=== PATIENT | female | born 1960 | race Caucasian/White ===

== ENCOUNTER → 2018-01-08 | Outpatient (CLI) | payer BC ==
--- NOTE | 2018-01-08 11:01 | XR ---
EXAMINATION TYPE: XR cervical spine comp DATE OF EXAM: 01/08/2018 COMPARISON: NONE HISTORY: Neck pain TECHNIQUE: Five-view cervical spine FINDINGS: Severe foraminal narrowing is present C5-6 C6-7 on the left and severe foraminal narrowing C6-7 on the right. There is degenerative disc changes C5-6 C6-7. The prevertebral space is normal. Some posterior endpla te spurring is present C6-7. Posterior spinal lamellar line is intact. Tip of the odontoid is obscure d by occiput. IMPRESSION: 1. Severe foraminal narrowing C5-6 C6-7 on the left C6-7 on the right. 2. Degenerative disc changes C5-6 and C6-7
--- NOTE | 2018-01-08 11:02 | XR ---
EXAMINATION TYPE: XR Hip Bilateral Complete DATE OF EXAM: 01/08/2018 COMPARISON: NONE HISTORY: Bilateral hip pain TECHNIQUE: Bilateral hips are examined in AP and frog-leg views. FINDINGS: There is narrowing of the bilateral hip joint spaces. The femoral heads articulate with the acetabulu m. Some mild femoral head spurring is present on the right. No acute fractures are evident. IMPRESSION: 1. Mild osteoarthritic degenerative changes bilateral hips
--- NOTE | 2018-01-08 11:07 | XR ---
EXAMINATION TYPE: XR lumbosacral spine min 4V DATE OF EXAM: 01/08/2018 COMPARISON: NONE HISTORY: Low back pain with no known injury TECHNIQUE: Five-view lumbar spine FINDINGS: There 5 lumbar-type vertebral bodies. The pedicles are intact. There is a scoliosis present with convexity to the right. Facet degenerative changes present L3-4 L4-5 L5-S1. Some vacuum disc ph enomenon is present L5-S1. There is a grade 1 spondylolisthesis of L4 anterior and L5. Some posterior disc space narrowing is present L3-4 and L1-2. Note is made of endplate changes at T11-12. IMPRESSION: 1. Scoliosis with degenerative facet changes. 2. Mild degenerative disc changes. 3. Mild grade 1 spondylolisthesis of L4 anterior and L5.
== END | disposition home or self-care (01) ==
LOC: RADXRMAIN 09:59
PROVIDERS: ATTEND Family Medicine
DX: M99.71 Connective tissue and disc stenosis of intervertebral foramina of cervical region (principal); M47.812 Spondylosis without myelopathy or radiculopathy, cervical region; M16.0 Bilateral primary osteoarthritis of hip; M47.816 Spondylosis without myelopathy or radiculopathy, lumbar region; M43.16 Spondylolisthesis, lumbar region; M41.9 Scoliosis, unspecified
CPT/HCPCS: 72050; 72110; 73521

== ENCOUNTER 2018-02-08 11:31 | Emergency (ER) | payer BC ==
[2018-02-08 11:58] VITALS: TEMP 98.4
[2018-02-08] MEDS ORDERED: ONDANSETRON 4 MG/2 ML VIAL IVP STA (12:27)
[2018-02-08] MEDS ORDERED: SODIUM CHLORIDE 0.9% 1,000 ML IV STA ×2 (12:27→14:06)
[2018-02-08 12:47] LABS: Basophils % (A) 0 %; Eosinophils # (A) 0.2 k/uL (0-0.7); Eosinophils % (A) 2 %; HCT 46.7 % (34.0-46.0); HGB 15.7 gm/dL (11.4-16.0); Lymphocytes # (A) 1.8 k/uL (1.0-4.8); Lymphocytes % (A) 16 %; MCH 29.7 pg (25.0-35.0); MCHC 33.7 g/dL (31.0-37.0); MCV 88.1 fL (80.0-100.0); Mean Platelet Volume 6.5; Monocytes # (A) 0.5 k/uL (0-1.0); Monocytes % (A) 4 %; Neutrophils # (A) 8.6 k/uL (1.3-7.7); Neutrophils % (A) 77 %; Platelet Count 301 k/uL (150-450); RBC 5.29 m/uL (3.80-5.40); WBC 11.1 k/uL (3.8-10.6)
[2018-02-08 12:54] LABS: Appearance,Urine Cloudy (Clear); Bacteria,Urine Rare /hpf; Bilirubin,Urine Negative (Negative); Blood,Urine Large (Negative); Color,Urine Light Orange; Glucose,Urine (UA) Negative (Negative); Ketones,Urine 2+ (Negative); Leukocyte Esterase,Urine Moderate (Negative); Mucus,Urine Moderate /hpf; Nitrite,Urine Negative (Negative); PH, Urine 8.5 (5.0-8.0); Protein,Urine 2+ (Negative); RBC,Urine >182 /hpf (0-5); Squamous Epithelial Cell,Urine 9 /hpf (0-4); Urobilinogen,Urine <2.0 mg/dL (<2.0); WBC,Urine 17 /hpf (0-5)
[2018-02-08 12:57] LABS: ALT 38 U/L (9-52); AST 26 U/L (14-36); Albumin 4.7 g/dL (3.5-5.0); Alkaline Phosphatase 75 U/L (38-126); Amylase 81 U/L (30-110); Anion Gap 13 mmol/L; Blood Urea Nitrogen 15 mg/dL (7-17); Calcium 9.6 mg/dL (8.4-10.2); Carbon Dioxide 19 mmol/L (22-30); Chloride 109 mmol/L (98-107); Glucose 109 mg/dL (74-99); Lipase 79 U/L (23-300); Potassium 4.1 mmol/L (3.5-5.1); Sodium 141 mmol/L (137-145); Total Bilirubin 0.9 mg/dL (0.2-1.3)
[2018-02-08] MEDS ORDERED: METOCLOPRAMIDE 5 MG/ML 2 ML VIAL IVP STA (13:08)
[2018-02-08] MEDS ORDERED: MORPHINE SULFATE 2 MG/ML SYRINGE IVP STA (13:09)
--- NOTE | 2018-02-08 13:38 | XR ---
EXAMINATION TYPE: XR KUB DATE OF EXAM: 02/08/2018 1:34 PM CLINICAL HISTORY: Nausea and vomiting today. TECHNIQUE: 3 supine KUB images of the abdomen are obtained. COMPARISON: None. FINDINGS: Gas is seen in nondistended stomach. There is some paucity of bowel gas. Visualized gas is noted in nondistended small and large bowel loops. Cholecystectomy clips are appreciated. There is de xtroconvex scoliosis centered in the mid lumbar spine. Multiple pelvic phleboliths are present. Visua lized lung bases are clear. Mild to moderate joint space loss in both hips is present. There is disc space narrowing L4-L5 level. IMPRESSION: Overall nonspecific but favor nonobstructive bowel gas pattern.
--- NOTE | 2018-02-08 13:41 | XR ---
EXAMINATION TYPE: XR lumbar spine 2 or 3V DATE OF EXAM: 02/08/2018 CLINICAL HISTORY: Low back pain TECHNIQUE: Frontal and lateral images of the lumbar spine are obtained. COMPARISON: Lumbar spine x-ray January 08, 2018 FINDINGS: There are 5 lumbar type vertebral bodies identified. The lumbar spine redemonstrates dext roconvex scoliosis centered at L3 level without evidence of acute fracture or dislocation. There is r edemonstration of grade 1 anterolisthesis of L4 on L5. Vertebral body heights remain are within cresencio l limits. There is mild disc space narrowing L4-L5 level redemonstrated. There is moderate disc spac e narrowing L5-S1 level redemonstrated. Facet arthropathy lower lumbar levels is present. Vascular ca lcification overlying abdominal aorta is seen. Cholecystectomy clips are noted. Suspect 2-3 calculi u pper to mid pole level left kidney noted near left 12th rib not significantly changed from prior.. IMPRESSION: As above, no significant change from prior study.
[2018-02-08] MEDS ORDERED: KETOROLAC 30 MG/ML 1 ML VIAL IVP STA (14:05)
--- NOTE | 2018-02-08 14:09 | CT ---
EXAMINATION TYPE: CT abdomen pelvis wo con DATE OF EXAM: 02/08/2018 HISTORY: pelvic pain with hematuria today. CT DLP: 438.5 mGycm. Automated Exposure Control for Dose Reduction was Utilized. TECHNIQUE: CT scan of the abdomen and pelvis is performed without oral or IV contrast. COMPARISON: NONE FINDINGS: Within the limitations of a non-contrast study, the following observations are made. LUNG BASES: No significant abnormality is appreciated. LIVER/GB: Cholecystectomy clips are identified. PANCREAS: No significant abnormality is seen. SPLEEN: No significant abnormality is seen. ADRENALS: Slightly low dense thickening to left adrenal gland favors hyperplasia. KIDNEYS: There are 1-2 calculi scattered throughout the right kidney including dominant 3 mm calculus upper pole level coronal image 60. There are 2 adjacent 4 to 5 mm calculi within upper pole calyx co sia image 57. There is obstructing 5 mm calculus distal left ureter axial image 129 causing mild to moderate left-sided pyelocaliectasis and proximal hydroureter. [place] bladder is poorly distended an d thus suboptimally evaluated seen best on coronal images. Multiple adjacent pelvic phleboliths are p resent. BOWEL: Small size hiatal hernia is present. GENITAL ORGANS: Anteverted uterus is seen. In the left pelvis there is 5.9 x 4.5 cm thin-walled cyst or cystic lesion that has some calcification in the thin-walled, there is slight lobulation and calci fication also seen anteriorly. Local mass effect is present. LYMPH NODES: No greater than 1cm abdominal or pelvic lymph nodes are appreciated. OSSEOUS STRUCTURES: Slight underlying scoliotic curvature is seen. There is multilevel spurring and d isc space narrowing in the mid to lower thoracic spine. Multilevel facet arthropathy lower lumbar lev els is present most prominent L4-L5 level. OTHER: There is mild to moderate calcified plaque of aorta extending into branch vessels. IMPRESSION: 1. Bilateral nephrolithiasis with obstructing 5 mm calculus distal left ureter causing mild to modera te left-sided hydronephrosis. 2. There is 5.9 cm partially calcified thin-walled cystic lesion left pelvis likely of ovarian etiolo gy, this is abnormal finding in postmenopausal female. OB gynecology oncology follow-up advised to as sess for further workup.
--- NOTE | 2018-02-08 14:35 | ED ---
General Adult HPI - General Chief complaint: Nausea/Vomiting/Diarrhea Stated complaint: VOMITING AND CHEST PAIN Time Seen by Provider: 02/08/18 12:15 Source: patient, RN notes reviewed Mode of arrival: wheelchair Limitations: no limitations - History of Present Illness Initial comments: 57-year-old female presents to the emergency department for a chief complaint of nausea and vomiting. Patient states this is likely due to pain in her low back and abdomen. Patient states pain is radiating from the low back to the abdomen. Patient states this started this morning. Patient has not taken anything for pain but did take Zofran which did not help. Patient denies any fevers or chills at home. Patient denies any diarrhea. Patient states her family members have had kidney stones but she has not had one before. Patient has no other complaints at this time including shortness of breath, chest pain, abdominal pain, nausea or vomiting, headache, or visual changes. - Related Data Previous Rx's Medication Instructions Recorded Cephalexin [Keflex] 500 mg PO Q8H 10 Days cap 02/08/18 HYDROcodone/APAP 5-325MG [[facility] 1 tab PO Q6HR PRN #10 tab 02/08/18 5-325] Ibuprofen [Motrin] 600 mg PO Q6HR PRN #20 tab 02/08/18 Ondansetron HCl [Zofran] 4 mg PO Q8HR PRN #14 tablet 02/08/18 Tamsulosin [Flomax] 0.4 mg PO DAILY #20 cap 02/08/18 Allergies Allergy/AdvReac Type Severity Reaction Status Date / Time Sulfa (Sulfonamide Allergy Unknown Verified 02/08/18 12:17 Antibiotics) Review of Systems ROS Statement: Those systems with pertinent positive or pertinent negative responses have been documented in the HPI. ROS Other: All systems not noted in ROS Statement are negative. Past Medical History Additional Past Medical History / Comment(s): dizziness vertigo History of Any Multi-Drug Resistant Organisms: None Reported Past Surgical History: Cholecystectomy, Orthopedic Surgery Past Psychological History: No Psychological Hx Reported Smoking Status: Current every day smoker Past Alcohol Use History: Occasional Past Drug Use History: Marijuana General Exam Limitations: no limitations General appearance: alert, in no apparent distress Head exam: Present: atraumatic, normocephalic, normal inspection Eye exam: Present: normal appearance ENT exam: Present: normal exam, mucous membranes moist Neck exam: Present: normal inspection, full ROM. Absent: tenderness, meningismus, lymphadenopathy Respiratory exam: Present: normal lung sounds bilaterally. Absent: respiratory distress, wheezes, rales, rhonchi, stridor Cardiovascular Exam: Present: regular rate, normal rhythm, normal heart sounds. Absent: systolic murmur, diastolic murmur, rubs, gallop, clicks GI/Abdominal exam: Present: soft, tenderness (mild LLQ tenderness), normal bowel sounds. Absent: distended, guarding, rebound, rigid Back exam: Present: full ROM (flexion 90 degrees, extension 20 degrees). Absent : tenderness (no tenderness of the cervical, thoracic or lumbar spine.), CVA tenderness (R), CVA tenderness (L), vertebral tenderness Neurological exam: Present: alert, oriented X3 Psychiatric exam: Present: normal affect, normal mood Course Vital Signs 02/08/18 02/08/18 11:54 14:18 Temperature 98.4 F Pulse Rate 78 86 Respiratory 18 18 Rate Blood Pressure 151/87 147/89 O2 Sat by Pulse 100 93 L Oximetry Medical Decision Making - Medical Decision Making 57-year-old female presents to the emergency department for a chief complaint of nausea and vomiting due to low back pain on the left side times one day. Patient has vomited about 10- 20 times today. Patient did take Zofran which did not help. Patient states family history of kidney stones which she has not had one. Patient denies any fevers or chills at home. Patient is walking around the room and does not want to lie down. Patient states the pain is radiating to her abdomen and groin. On exam no CVA tenderness. Mild left lower quadrant tenderness. Vitals within normal limits. Temp 98.4, pulse 78, respirations 18, blood pressure 151/87, pulse ox 100% on room air. CBC unremarkable with a very mild white count of 11.1. CMP within normal limits. Plasma lactic acid 2.5 which is very likely due to dehydration from multiple episodes of vomiting. Patient given another liter of saline. Patient does not meet septic criteria. Large blood noted in the urine. CT shows bilateral nephrolithiasis with obstructing 5 mm calculus distal left ureter causing mild to moderate left-sided hydronephrosis. There is also a 5.9 cm partially calcified thin-walled cystic lesion left pelvis likely of ovarian etiology. patient will follow up with [facility]PER[facility] for this. She was informed about this and is aware she needs to follow-up. Patient will follow-up with urology for the kidney stone. She will be given pain medication as well as Flomax and Zofran. She will also be given Keflex to cover poss UTI. She will return to the emergency Department if she has any worsening symptoms. - Lab Data Result diagrams: 02/08/18 12:30 02/08/18 12:30 Lab Results 02/08/18 02/08/18 02/08/18 Range/Units 12:30 12:30 12:30 WBC 11.1 H (3.8-10.6) k/uL RBC 5.29 (3.80-5.40) m/uL Hgb 15.7 (11.4-16.0) gm/dL Hct 46.7 H (34.0-46.0) % MCV 88.1 (80.0-100.0) fL MCH 29.7 (25.0-35.0) pg MCHC 33.7 (31.0-37.0) g/dL RDW 14.0 (11.5-15.5) % Plt Count 301 (150-450) k/uL Neutrophils % 77 % Lymphocytes % 16 % Monocytes % 4 % Eosinophils % 2 % Basophils % 0 % Neutrophils # 8.6 H (1.3-7.7) k/uL Lymphocytes # 1.8 (1.0-4.8) k/uL Monocytes # 0.5 (0-1.0) k/uL Eosinophils # 0.2 (0-0.7) k/uL Basophils # 0.0 (0-0.2) k/uL Sodium 141 (137-145) mmol/L Potassium 4.1 (3.5-5.1) mmol/L Chloride 109 H (98-107) mmol/L Carbon Dioxide 19 L (22-30) mmol/L Anion Gap 13 mmol/L BUN 15 (7-17) mg/dL Creatinine 0.70 (0.52-1.04) mg/dL Est GFR (CKD-EPI)AfAm >90 (>60 ml/min/1.73 sqM) Est GFR (CKD-EPI)NonAf >90 (>60 ml/min/1.73 sqM) Glucose 109 H (74-99) mg/dL Plasma Lactic Acid Tomasz (0.7-2.0) mmol/L Calcium 9.6 (8.4-10.2) mg/dL Total Bilirubin 0.9 (0.2-1.3) mg/dL AST 26 (14-36) U/L ALT 38 (9-52) U/L Alkaline Phosphatase 75 (38-126) U/L Total Protein 7.0 (6.3-8.2) g/dL Albumin 4.7 (3.5-5.0) g/dL Amylase 81 (30-110) U/L Lipase 79 (23-300) U/L Urine Color Light [place] Urine Appearance Cloudy H (Clear) Urine pH 8.5 H (5.0-8.0) Ur Specific [place] 1.020 (1.001-1.035) Urine Protein 2+ H (Negative) Urine Glucose (UA) Negative (Negative) Urine Ketones 2+ H (Negative) Urine Blood Large H (Negative) Urine Nitrite Negative (Negative) Urine Bilirubin Negative (Negative) Urine Urobilinogen <2.0 (<2.0) mg/dL Ur Leukocyte Esterase Moderate H (Negative) Urine RBC >182 H (0-5) /hpf Urine WBC 17 H (0-5) /hpf Urine WBC Clumps Occasional H (None) /hpf Ur Squamous Epith Cells 9 H (0-4) /hpf Urine Bacteria Rare H (None) /hpf Urine Mucus Moderate H (None) /hpf Urine HCG, Qual (Not Detectd) 02/08/18 02/08/18 Range/Units 12:30 12:40 WBC (3.8-10.6) k/uL RBC (3.80-5.40) m/uL Hgb (11.4-16.0) gm/dL Hct (34.0-46.0) % MCV (80.0-100.0) fL MCH (25.0-35.0) pg MCHC (31.0-37.0) g/dL RDW (11.5-15.5) % Plt Count (150-450) k/uL Neutrophils % % Lymphocytes % % Monocytes % % Eosinophils % % Basophils % % Neutrophils # (1.3-7.7) k/uL Lymphocytes # (1.0-4.8) k/uL Monocytes # (0-1.0) k/uL Eosinophils # (0-0.7) k/uL Basophils # (0-0.2) k/uL Sodium (137-145) mmol/L Potassium (3.5-5.1) mmol/L Chloride (98-107) mmol/L Carbon Dioxide (22-30) mmol/L Anion Gap mmol/L BUN (7-17) mg/dL Creatinine (0.52-1.04) mg/dL Est GFR (CKD-EPI)AfAm (>60 ml/min/1.73 sqM) Est GFR (CKD-EPI)NonAf (>60 ml/min/1.73 sqM) Glucose (74-99) mg/dL Plasma Lactic Acid Tomasz 2.5 H* (0.7-2.0) mmol/L Calcium (8.4-10.2) mg/dL Total Bilirubin (0.2-1.3) mg/dL AST (14-36) U/L ALT (9-52) U/L Alkaline Phosphatase (38-126) U/L Total Protein (6.3-8.2) g/dL Albumin (3.5-5.0) g/dL Amylase (30-110) U/L Lipase (23-300) U/L Urine Color Urine Appearance (Clear) Urine pH (5.0-8.0) Ur Specific [place] (1.001-1.035) Urine Protein (Negative) Urine Glucose (UA) (Negative) Urine Ketones (Negative) Urine Blood (Negative) Urine Nitrite (Negative) Urine Bilirubin (Negative) Urine Urobilinogen (<2.0) mg/dL Ur Leukocyte Esterase (Negative) Urine RBC (0-5) /hpf Urine WBC (0-5) /hpf Urine WBC Clumps (None) /hpf Ur Squamous Epith Cells (0-4) /hpf Urine Bacteria (None) /hpf Urine Mucus (None) /hpf Urine HCG, Qual Not Detected (Not Detectd) Disposition Clinical Impression: Left nephrolithiasis Disposition: HOME SELF-CARE Condition: Good Instructions: Kidney Stones (ED) Additional Instructions: Please take Motrin for pain. If pain is severe take [facility]. Please take Flomax as directed. Take Zofran for nausea. Finish antibiotic as directed. Follow- up with family doctor or [facility] for ovarian cyst. Follow-up with urology in 1- 2 days. Return to the emergency department if you have any worsening symptoms. Prescriptions: Cephalexin [Keflex] 500 mg PO Q8H 10 Days cap HYDROcodone/APAP 5-325MG [[facility] 5-325] 1 tab PO Q6HR PRN #10 tab PRN Reason: Pain Ibuprofen [Motrin] 600 mg PO Q6HR PRN #20 tab PRN Reason: Pain Ondansetron HCl [Zofran] 4 mg PO Q8HR PRN #14 tablet PRN Reason: Nausea Tamsulosin [Flomax] 0.4 mg PO DAILY #20 cap Is patient prescribed a controlled substance at d/c from ED?: Yes When asked, does pt state using other controlled substances?: No If prescribed controlled substance>3 days was MAPS reviewed?: Prescribed <3 Days If opioid is for acute pain is fill amount 7 days or less?: Yes If Rx opioid, was Start Talking consent form obtained?: Yes Referrals: Devin Guaraddo DO [Primary Care Provider] - 1-2 days Shaylee Wilkes MD [STAFF PHYSICIAN] - 1-2 days John Amador MD [STAFF PHYSICIAN] - 1-2 days Time of Disposition: 14:32
[2018-02-08 15:16] VITALS: BP 157/83; PULSE 87; RESP 16
== END 2018-02-08 15:16 | disposition home or self-care (01) ==
LOC: EC 11:31
DX: N13.2 Hydronephrosis with renal and ureteral calculous obstruction (principal); F17.200 Nicotine dependence, unspecified, uncomplicated; Z90.49 Acquired absence of other specified parts of digestive tract; Z98.890 Other specified postprocedural states; Z88.2 Allergy status to sulfonamides
CPT/HCPCS: 36415; 80053; 82150; 83605; 83690; 85025; 81001; 81025; 87040; 72100; 74018; 74176; 99284; 96374; 96375 ×3; 96361 ×2; J2765; J2405; J1885; J2270

== ENCOUNTER → 2020-10-08 | Outpatient (CLI) | payer BC ==
--- NOTE | 2020-10-08 13:09 | CT ---
EXAMINATION TYPE: CT chest w con, CT abdomen pelvis wo con DATE OF EXAM: 10/08/2020 COMPARISON: 04/05/2018 HISTORY: 60 year-old female shortness of breath, Dyspnea. Generalized abdominal pain. TECHNIQUE: Contiguous axial scanning of the chest after the administration of 100 mL of Isovue M300. Coronal/sagittal reconstructions performed. Initial noncontrast scanning of the abdomen and pelvis. Coronal and sagittal reconstructions performed. CT DLP: 544.74 (accession [id number]), 884.52 (accession [id number])mGycm. Automatic exposure control uti lized for a dose reduction. FINDINGS: CHEST: Suggestion of underlying nodules measuring up to 1.0 cm and the thyroid gland. Dedicated thyroid ultr asound could further evaluate. Heart normal size with trace anterior pericardial fluid measuring 7 mm thick. Aorta normal caliber with a minimal atherosclerotic arch calcifications and conventional arch vessel branching anatomy. No thoracic lymphadenopathy by CT size criteria. Mild emphysematous change in the upper lungs. Some minimal strandy scarring or atelectasis. 4 mm anterior left midlung pulmonary nodule, axial image 23 should be reassessed at follow-up. Tiny 3 mm peripheral left basilar pulmonary nodule, axial image 40. No consolidation or pleural effusion. ABDOMEN: Vague 1.2 cm hypodensity right hepatic dome show some peripheral nodular enhancement of the chest por tion of the exam suggesting a hemangioma. A 2.6 cm hypoechoic density segment 2 Central left liver lobe was present in 2018 as well, suspect a mildly complicated cyst.. Tiny cyst left hepatic dome. Cholecystectomy clips. Noncontrast appearance of the right adrenal gland, spleen, and pancreas show no gross abnormality. Nonobstructive 3 mm right renal calculus. 5 mm nonobstructive left renal calculus. There is moderate left hydronephrosis and hydroureter with a n 8 mm calculus at the left UVJ. Call No dilated small bowel, free fluid, or free air. No mesenteric or retroperitoneal lymphadenopathy. Normal appendix. Multiple moderate scattered stool. No pericolonic inflammatory change. PELVIS: Bladder collapsed. Numerous pelvic lymph nodes. Uterus anteverted. Both ovaries are visualized. Cysti c left adnexal lesion measures 5.7 cm versus 6.3 cm on 02/08/2018. Discontinuous thin peripheral calci fication. There is an exophytic nodular component measuring 1.8 cm versus 1.1 cm on 04/05/2018. No abno rmal fluid collection otherwise seen in the pelvis or pelvic lymphadenopathy. BONES: Hypertrophic facet arthropathy lower lumbar spine with grade 1 anterolisthesis L4-L5. Moderate degene rative disc disease lower thoracic spine. Mild degenerative disc disease midthoracic spine. COMBINED IMPRESSION (chest, abdomen, and pelvis): 1. Dedicated thyroid ultrasound could further evaluate the thyroid gland. Underlying nodules are sugg ested and may measure up to 1.0 cm. 2. COPD with mild emphysema. A couple pulmonary nodules measuring up to 4 mm. Recommend 6 month follo w-up CT chest to reassess. 3. Exam positive for an 8 mm left UVJ calculus with moderate obstructive uropathy. 4. Cystic left adnexal lesion stable to slightly smaller at 5.7 cm. However, an exophytic nodular com ponent along the anterior margin is increased in size at 1.8 cm versus 1.1 cm, previously. 6-12 month follow-up recommended. Cystic epithelial ovarian neoplasm remains in the differential.
== END ==
LOC: RADCTMAIN 12:04
PROVIDERS: ATTEND Family Medicine
DX: J44.9 Chronic obstructive pulmonary disease, unspecified (principal); J43.9 Emphysema, unspecified; N20.1 Calculus of ureter; N13.9 Obstructive and reflux uropathy, unspecified
CPT/HCPCS: 71260; 74176; Q9967

== ENCOUNTER → 2020-10-26 | Outpatient (CLI) | payer BC ==
[2020-10-26 14:18] LABS: Basophils % (A) 1 %; Eosinophils # (A) 0.2 k/uL (0-0.7); Eosinophils % (A) 3 %; HCT 43.8 % (34.0-46.0); HGB 15.1 gm/dL (11.4-16.0); Lymphocytes # (A) 2.8 k/uL (1.0-4.8); Lymphocytes % (A) 36 %; MCH 30.4 pg (25.0-35.0); MCHC 34.3 g/dL (31.0-37.0); MCV 88.5 fL (80.0-100.0); Mean Platelet Volume 6.6; Monocytes # (A) 0.4 k/uL (0-1.0); Monocytes % (A) 5 %; Neutrophils # (A) 4.1 k/uL (1.3-7.7); Neutrophils % (A) 54 %; Platelet Count 290 k/uL (150-450); RBC 4.95 m/uL (3.80-5.40); RDW 13.6 % (11.5-15.5); WBC 7.7 k/uL (3.8-10.6)
[2020-10-26 14:52] LABS: ALT 19 U/L (4-34); AST 21 U/L (14-36); African American GFR (CKD) >90 (>60 ml/min/1.73 sqM); Albumin 4.4 g/dL (3.5-5.0); Alkaline Phosphatase 64 U/L (38-126); Anion Gap 6 mmol/L; Blood Urea Nitrogen 12 mg/dL (7-17); Calcium 9.8 mg/dL (8.4-10.2); Carbon Dioxide 29 mmol/L (22-30); Chloride 104 mmol/L (98-107); Glucose 86 mg/dL (74-99); Non-African American GFR(CKD) 89 (>60 ml/min/1.73 sqM); Potassium 4.3 mmol/L (3.5-5.1); Sodium 139 mmol/L (137-145); Total Bilirubin 0.5 mg/dL (0.2-1.3); Total Protein 6.9 g/dL (6.3-8.2)
== END | disposition home or self-care (01) ==
LOC: LABPAT 13:45
PROVIDERS: ATTEND Urology
DX: Z01.818 Encounter for other preprocedural examination (principal); N20.1 Calculus of ureter
CPT/HCPCS: 80053; 85025

== ENCOUNTER 2020-10-30 09:26 | Day surgery (SDC) | payer BC ==
[2020-10-28 08:50] VITALS: BMI 25.8
--- NOTE | 2020-10-29 11:34 | P.HPIHPCON ---
History of Present Illness H&P Date: 10/29/20 Chief Complaint: Left-sided ureteral stone This is 58-year-old female with history of an 8 mm left distal ureteral stone 4 mm nonobstructive renal stone. She symptomatic secondary to her stone. Discussed with her surgical options, she agreed to proceed with left-sided uret eroscopy. Discussed the risk which includes but not limited to bleeding, infection, injury to the ureter. Discussed all the risk from anesthesia. She understood all the risk and agreed to proceed with a left-sided ureteroscopy, with holmium laser lithotripsy, stone basketing and stent placement Consent for Procedure: I have explained the operation/procedure to the patient, including the risks, benefits, side effects, alternative therapies (including not receiving the proposed treatment or service), the likelihood of the patient achieving his/her goals, and potential recuperation problems for the procedure/sedation/analgesia, as well as any blood products, if indicated. I also explained to the patient the risks, benefits and side effects of the alternatives, as well as the risks related to not receiving the proposed procedure, care, treatment, or services. Past Medical History Additional Past Medical History / Comment(s): dizziness vertigo, kidney stones, nodule on thyroid, raspy voice History of Any Multi-Drug Resistant Organisms: None Reported Past Surgical History: Cholecystectomy, Orthopedic Surgery Additional Past Surgical History / Comment(s): ganesh carpal tunnel surgery Past Anesthesia/Blood Transfusion Reactions: No Reported Reaction Smoking Status: Current every day smoker - Past Family History Father Family Medical History: Cancer Additional Family Medical History / Comment(s): lung cancer Mother Family Medical History: Diabetes Mellitus Sister(s) Family Medical History: Cancer Additional Family Medical History / Comment(s): breast cancer Medications and Allergies Home Medications Medication Instructions Recorded Confirmed Type Calcium,Magnesium,Zinc 1 tab PO DAILY 10/28/20 10/28/20 History Cholecalciferol [Vitamin D3 (25 25 mcg PO DAILY 10/28/20 10/28/20 History Mcg = 1000 Iu)] Multivitamins, Thera [Multivitamin 1 tab PO DAILY 10/28/20 10/28/20 History (formulary)] Allergies Allergy/AdvReac Type Severity Reaction Status Date / Time Sulfa (Sulfonamide Allergy Unknown Verified 10/28/20 08:37 Antibiotics) Surgical - Exam - General moderate pain - Eyes PERRL, normal ocular movement - ENT normal nares, normal mucosa - Respiratory normal expansion, normal respiratory effort - Psychiatric oriented to time, oriented to person, oriented to place Assessment and Plan Assessment: 60-year-old female with history of left-sided ureteral stone -Or for left-sided ureteroscopy, holmium laser lithotripsy, stone basketing and stent placement
[~2020-10-30 09:26] MED LIST: LACTATED RINGERS 1,000 ML IV SCH; ONDANSETRON 4 MG/2 ML VIAL IVP ONE; fentaNYL (PF) 50 MCG/ML 2 ML AMP IV PRN
[2020-10-30] MEDS ORDERED: LIDOCAINE 1% INJ 10MG/ML (20 ML MDV) ONE (11:34)
[2020-10-30] MEDS ORDERED: HYDROmorphone (PF) 1 MG/ML ONE (11:34)
[2020-10-30] MEDS ORDERED: PROPOFOL 10 MG/ML 20 ML VIAL IV ONE (11:34)
[2020-10-30] MEDS ORDERED: fentaNYL (PF) 50 MCG/ML 2 ML AMP ONE (11:34)
[2020-10-30] MEDS ORDERED: MIDAZOLAM 2 MG/2 ML VIAL ONE (11:34)
--- NOTE | 2020-10-30 12:39 | XR ---
EXAMINATION TYPE: XR KUB DATE OF EXAM: 10/30/2020 Comparison: CT 10/08/2020 Clinical History: 60-year-old female N20.1 left ureteral calculus Pre surgical Findings: Lung bases are clear. Supine imaging limited for assessment of free air. Nonobstructive bowel gas pattern. No significant stool burden. Surgical clips right upper quadrant, likely cholecystectomy clips. Some vague punctate calcific densities are suggested at the left mid abdomen. Multiple pelvic phlebol iths are also noted. A slightly more irregular calcification measuring 7 mm left paramedian lower pel vis may correspond to the calculus seen on 10/08/2020. Gentle dextroconvex scoliotic curvature of the lumbar spine with hypertrophic facet arthropathy lower lumbar spine. Mild degenerative change of both hips. Impression: Some vague punctate calcifications suggested in the left mid abdomen, likely small renal calculi. A 7 mm calcification left paramedian lower pelvis may correspond to a left UVJ calculus.
[2020-10-30 12:50] VITALS: TEMP 98.4
--- NOTE | 2020-10-30 12:51 | P.OP ---
Date of Procedure: 10/30/20 Preoperative Diagnosis: Left ureteral stone, bilateral renal stones Postoperative Diagnosis: Same Procedure(s) Performed: Cystoscopy, bilateral ureteroscopy, holmium laser lithotripsy, left stone basketing Implants: None Anesthesia: NELLIEA Surgeon: Hitesh Grullon Estimated Blood Loss (ml): 1 Pathology: other (left ureteral stone) Condition: stable Disposition: PACU Indications for Procedure: T Operative Findings: Stone protruding from the left UVJ, additional stone in the left upper calyx, stone was also seen in the right upper calyx adherent to the mucosa Description of Procedure: Patient was brought to the operating room, general anesthesia was induced. She was prepped and draped in sterile fashion and placed in dorsal litomtimy position. Cystoscopy fitted with a 21-Bruneian sheath was inserted per urethra, cystoscopy was performed which showed no abnormality within the bladder. Attention was then carried to the left ureteral orifice, a large stone was seen protruding from it. At this time the cystoscope was withdrawn and a semirigid ureteroscope was inserted. The stone was visualized protruding from the ureteral orifice, the stone was fragmented into approximately 3 pieces. The fragments were removed using a stone basket. At this time the semirigid ureteroscope was advanced all the way up to the UPJ without any finding of additional stones. Pullback ureteroscopy was performed showed no injury to the ureter or any ureteral fragments. At this time a sensor wire was advanced through the ureteroscope and the ureteroscope was withdrawn with the wire in place. Next a flexible ureteroscope was passed over the wire and into the kidney. Renoscopy was performed, which showed a stone in the upper calyx. Using the holmium laser the stone was dusted. Repeat renoscopy showed no sizable fragments or injury to the kidney. Pullback ureteroscopy was performed which showed no injury to the ureter or any ureteral fragments. There was no evidence of ureteral edema thus a stent was not placed. At this time the cystoscope was reinserted and the right ureteral orifice was intubated with a sensor wire. Next a flexible ureteroscope was passed over the wire without any resistance up into the kidney. Renoscopy was performed which showed a small stone in the kidney adherent to the mucosa. Using the holmium laser the stone was dusted. Repeat renoscopy showed no additional stones or any injury to the kidney. Pullback ureteroscopy was performed which showed no injury to the ureter or any ureteral fragments. The bladder was emptied at the end of the case. The patient was taken to recovery in stable condition
[2020-10-30] MEDS: HYDROmorphone 0.5 MG/0.5 ML SYRINGE IVP PRN ×2 (12:58→13:05)
[2020-10-30] MEDS ORDERED: ONDANSETRON 4 MG/2 ML VIAL IVP ONE (13:00)
[2020-10-30] MEDS ORDERED: LACTATED RINGERS 1,000 ML IV ONE (13:28)
[2020-10-30 13:47] VITALS: RESP 16
[2020-10-30 14:44] VITALS: BP 145/82; PULSE 70
--- NOTE | 2020-10-30 14:53 | FL ---
EXAMINATION TYPE: FL guidance operating room DATE OF EXAM: 10/30/2020 FLUOROSCOPY Fluoroscopy time of 7 seconds was used during bilateral lithotripsy. 1 image/s document/s the proced ure.
== END 2020-10-30 15:24 | disposition home or self-care (01) ==
LOC: OR 09:26
PROVIDERS: ATTEND Urology
DX: N20.2 Calculus of kidney with calculus of ureter (principal); E04.1 Nontoxic single thyroid nodule; J45.909 Unspecified asthma, uncomplicated; F17.210 Nicotine dependence, cigarettes, uncomplicated; K21.9 Gastro-esophageal reflux disease without esophagitis; R42 Dizziness and giddiness; Z88.2 Allergy status to sulfonamides; Z88.8 Allergy status to other drugs, medicaments and biological substances; Z87.442 Personal history of urinary calculi; Z90.49 Acquired absence of other specified parts of digestive tract; Z98.890 Other specified postprocedural states; Z97.2 Presence of dental prosthetic device (complete) (partial); Z80.1 Family history of malignant neoplasm of trachea, bronchus and lung; Z83.3 Family history of diabetes mellitus; Z80.3 Family history of malignant neoplasm of breast
CPT/HCPCS: 82365; 74018; 52353; C1769; J2250; J0690; J2405; J2001; J3010; J1170 ×2; J2704

== ENCOUNTER → 2020-12-03 | Outpatient (CLI) | payer BC ==
--- NOTE | 2020-12-03 10:43 | US ---
EXAMINATION TYPE: US thyroid st tissue head/neck DATE OF EXAM: 12/03/2020 COMPARISON: Chest CT October 08, 2020 CLINICAL HISTORY: E04.[address] showed thyroid nodule per patient GLAND SIZE: Right Lobe: 3.8 x 1.8 x 1.4 cm Overall Parenchyma: heterogenous Left Lobe: 3.6 x 1.5 x 1.6 cm Overall Parenchyma: heterogeneous Isthmus Thickness: 0.2 cm NODULES- Multiple nodules seen bilaterally, largest measured RIGHT: # of nodules measured on right: 3 1. 1.2 X 0.9 x 0.5 cm, mid medial, solid or almost completely solid, isoechoic nodule, which is wid er than tall, with smooth margins, without echogenic foci. Prior size: no prior 2. 1.0 X 0.7 x 0.6 cm, lower mid, mixed cystic and solid, hypoechoic nodule, which is wider than ta ll, with smooth margins, without echogenic foci. Prior size: no prior 3. 0.4 X 0.3 x 0.3 cm, upper mid, solid or almost completely solid, hypoechoic nodule, which is wid e as tall, with smooth margins, with echogenic foci. Prior size: no prior LEFT: # of nodules measured on left: 3 1. 1.9 X 1.5 x 1.2 cm, mid , mixed cystic and solid, isoechoic nodule, which is wider than tall, wi th ill-defined margins, without echogenic foci. Prior size: no prior 2. 0.8 X 0.8 x 0.6 cm, upper mid, mixed cystic and solid, hypoechoic nodule, which is wider than t all, with smooth margins, without echogenic foci. Prior size: no prior 3. 0.8 X 0.8 x 0.7 cm, lower mid, spongiform, very hypoechoic nodule, which is wider than tall, wit h smooth margins, without echogenic foci. Prior size: no prior ISTHMUS: # of nodules measured in the isthmus: 1 1. 0.7 X 0.6 x 0.3 cm Right lateral solid or almost completely solid, hypoechoic nodule, which is w ider than tall, with smooth margins, without echogenic foci. Prior size: no prior Bilateral neck scanned, no evidence of lymphadenopathy. Heterogeneous small size thyroid with bilateral thyroid nodules, the only measured nodule greater daria n 1 cm is on the left on image 41. This is TR 2 lesion. IMPRESSION: Multinodular goiter. No concerning nodules. 2017 ACR TI-RADS LEVEL: TR-RADS 2 - Not Suspicious: No FNA *Highest TI-RADS level nodule reported
== END | disposition home or self-care (01) ==
LOC: RADUSWWP 09:25
PROVIDERS: ATTEND Otolaryngology
DX: E04.2 Nontoxic multinodular goiter (principal)
CPT/HCPCS: 76536

== ENCOUNTER 2020-12-09 06:19 | Day surgery (SDC) | payer BC ==
[2020-12-04 16:00] VITALS: BMI 26.8
[~2020-12-09 06:19] MED LIST changes: +DEXAMETHASONE SOD PHOSPHATE 4 MG/ML 1 ML VIAL IV ONE; +DEXAMETHASONE SOD PHOSPHATE 4 MG/ML 1 ML VIAL IV PRN; +FAMOTIDINE 20 MG/2 ML VIAL IV PRN; +LIDOCAINE 1% (10MG/ML) FOR IV START INTRADERMA PRN; +MIDAZOLAM 2 MG/2 ML VIAL IV PRN; +ONDANSETRON 4 MG/2 ML VIAL IVP PRN; -fentaNYL (PF) 50 MCG/ML 2 ML AMP IV PRN
[2020-12-09] MEDS ORDERED: HYDROmorphone 0.5 MG/0.5 ML SYRINGE IVP PRN (07:00)
[2020-12-09 07:13] VITALS: TEMP 97
[2020-12-09] MEDS ORDERED: PROPOFOL 10 MG/ML 20 ML VIAL IV ONE (07:24)
[2020-12-09] MEDS ORDERED: SUCCINYLCHOLINE CHLORIDE 100 MG/5 ML SYR IV ONE (07:24)
[2020-12-09] MEDS ORDERED: GLYCOPYRROLATE 0.2 MG/ML 2 ML VIAL ONE (07:24)
[2020-12-09] MEDS ORDERED: NEOSTIGMINE 1 MG/ML 10 ML VIAL ONE (07:24)
[2020-12-09] MEDS ORDERED: ROCURONIUM 10 MG/ML (5 ML VIAL) IV ONE (07:24)
[2020-12-09] MEDS ORDERED: DEXAMETHASONE SOD PHOSPHATE 10 MG/ML 1 ML VIAL ONE (07:24)
[2020-12-09] MEDS ORDERED: fentaNYL (PF) 50 MCG/ML 2 ML AMP ONE (07:24)
[2020-12-09] MEDS ORDERED: LIDOCAINE 1% INJ 10MG/ML (20 ML MDV) ONE (07:24)
--- NOTE | 2020-12-09 08:03 | P.OP ---
Date of Procedure: 12/09/20 Preoperative Diagnosis: Chronic laryngitis Right vocal cord leukoplakia Postoperative Diagnosis: Same Procedure(s) Performed: Microlaryngoscopy with biopsy bilateral true vocal cords Anesthesia: JOHNATHON Surgeon: Dillon Cabrera Estimated Blood Loss (ml): 1 Pathology: other (Bilateral vocal cord biopsies) Condition: stable Disposition: PACU Indications for Procedure: This 60-year-old white female who has a long history of smoking. She's developed chronic hoarseness and had notable bilateral true vocal cord edema with leukoplakia on the right true vocal cord on flexible laryngoscopy Operative Findings: Left true vocal cord with diffuse edema and the right vocal cord had diffuse edema but overlying this was a nodular lesion with white exudate approximate 4 mm and protruding the nodular area was firm this was in the mid true vocal Description of Procedure: The patient was brought in the operative suite and placed in a supine position. The patient underwent induction of general anesthesia with oral endotracheal intubation without difficulty. The patient was prepped and draped in usual aseptic fashion. The tooth guard was placed over the gingiva and direct laryngoscopy was performed with systematic evaluation of the base of tongue vallecula both piriform sinuses post cricoid area and endolarynx. With the larynx in good visualization the laryngoscope was placed in suspension and the Zeiss microscope was brought into position to visualize the vocal cords. The redundant mucosa of the left true vocal cord was grasped with a microcup forcep and incision was made at the superior aspect of the true vocal cord with the myxoid material suctioned and the redundant portion of the mucosa excised with microdissection technique and then mucosa was redraped over the vocal cord itself. The lamina propria was left intact. Attention was then turned to the right true vocal cord where the nodular lesion was excised from the underlying true vocal cord grossly entirely with microdissection technique. Again the lamina propria was left intact. Hemostasis was gained spontaneously. The mucosa at the anterior commissure was left intact. The patient was suctioned in the larynx and was then allowed to emerge from general anesthesia having tolerated procedure well the laryngoscope and gum guard were removed and the patient extubated in the operating suite and transferred to the postop recovery area in satisfactory condition.
[2020-12-09 08:51] VITALS: BP 112/69; RESP 16
[2020-12-09 09:08] VITALS: PULSE 75
== END 2020-12-09 09:35 | disposition home or self-care (01) ==
LOC: OR 06:19
PROVIDERS: ATTEND Otolaryngology
DX: J37.0 Chronic laryngitis (principal); J38.3 Other diseases of vocal cords; J38.1 Polyp of vocal cord and larynx; K21.9 Gastro-esophageal reflux disease without esophagitis; K58.9 Irritable bowel syndrome, unspecified; F17.210 Nicotine dependence, cigarettes, uncomplicated; F12.90 Cannabis use, unspecified, uncomplicated; Z85.820 Personal history of malignant melanoma of skin; Z79.899 Other long term (current) drug therapy; Z82.61 Family history of arthritis; Z80.3 Family history of malignant neoplasm of breast; Z80.1 Family history of malignant neoplasm of trachea, bronchus and lung; Z83.3 Family history of diabetes mellitus; Z88.2 Allergy status to sulfonamides
CPT/HCPCS: 88305; 31541; J2250; J1100 ×2; J2710; J2405; J2001; J3010; J0330; J2704

== ENCOUNTER → 2021-05-11 | Outpatient (CLI) | payer BC ==
--- NOTE | 2021-05-12 10:42 | P.ARTDOP ---
Arterial Doppler LOWER EXTREMITY ARTERIAL DOPPLER: DATE OF SERVICE: 05/11/2021 Reason for study: Nocturnal foot cramping. Doppler waveforms: Multiphasic bilaterally throughout. Pulse volume recording: []. Pressure gradients: None. Ankle-brachial indices: Greater than 1 bilaterally. Toe brachial indices: 0.84 on the right, 0.85 on the left Impression: Normal study.
== END | disposition home or self-care (01) ==
LOC: RADUSWWP 13:17
PROVIDERS: ATTEND Family Medicine
DX: G47.62 Sleep related leg cramps (principal)
CPT/HCPCS: 93922

== ENCOUNTER → 2022-05-25 | Outpatient (CLI) | payer BC ==
[2022-05-25 18:37] LABS: Basophils # (A) 0.03 X 10*3/uL (0.00-0.10); Basophils % (A) 0.4 %; Eosinophils # (A) 0.28 X 10*3/uL (0.04-0.35); Eosinophils % (A) 3.7 %; HCT 43.2 % (37.2-46.3); HGB 14.5 g/dL (12.0-15.0); Immature Grans, Automated 0.3 %; Lymphocytes # (A) 3.11 X 10*3/uL (0.90-5.00); Lymphocytes % (A) 40.9 %; MCH 29.9 pg (27.0-32.0); MCHC 33.6 g/dL (32.0-37.0); MCV 89.1 fL (80.0-97.0); Mean Platelet Volume 9.4 fL (9.5-12.2); Monocytes # (A) 0.59 X 10*3/uL (0.20-1.00); Monocytes % (A) 7.8 %; NRBC Per 100 WBC 0 /100 WBCS (0.0-0.0); Neutrophils # (A) 3.58 X 10*3/uL (1.80-7.70); Neutrophils % (A) 46.9 %; Platelet Count 295 X 10*3/uL (140-440); RBC 4.85 X 10*6/uL (4.10-5.20); RDW 13.8 % (11.5-14.5); WBC 7.61 X 10*3/uL (4.50-10.00)
[2022-05-25 18:50] LABS: Appearance,Urine Clear (Clear); Bilirubin,Urine Negative (Negative); Blood,Urine Negative (Negative); Color,Urine Yellow (Yellow); Ketones,Urine Negative (Negative); Nitrite,Urine Negative (Negative); Specific Gravity,Urine 1.006 (1.001-1.030); Urobilinogen,Urine 0.2 (0.2,1.0)
[2022-05-25 19:15] LABS: African American GFR (CKD) 107.7 (60.0-200.0); Anion Gap 10.8 mmol/L (10.00-18.00); BUN/Creat Ratio 17.84 Ratio (12.00-20.00); Blood Urea Nitrogen 12.2 mg/dL (9.0-27.0); Calcium 9.3 mg/dL (8.7-10.3); Carbon Dioxide 27.4 mmol/L (20.0-27.5); Non-African American GFR(CKD) 92.9 (60.0-200.0); Potassium 4.8 mmol/L (3.5-5.5)
== END | disposition home or self-care (01) ==
LOC: LABPAT 12:14
PROVIDERS: ATTEND Urology
DX: Z01.812 Encounter for preprocedural laboratory examination (principal); N20.0 Calculus of kidney; R31.29 Other microscopic hematuria
CPT/HCPCS: 80048; 81003; 85025; 87086

== ENCOUNTER 2022-06-13 08:16 | Day surgery (SDC) | payer BC ==
[2022-06-08 08:50] VITALS: BMI 28.2
--- NOTE | 2022-06-13 07:46 | P.HPIHPCON ---
History of Present Illness H&P Date: 06/13/22 Chief Complaint: right renal stone This is a 61 yo female with a history of a 8 mm right-sided renal pelvis stone. She symptomatic from her stone. Option of ureteroscopy with holmium laser vs ESWL was discussed with her in detail. Risk and benefit of each approach were d iscussed. She agreed to proceed with right-sided he renoscopy with holmium laser. Discussed risk which includes but not limited to bleeding, infection, injury to ureter. Discussed also risk from anesthesia. She understood all the risk and agreed to proceed with right-sided ureteroscopy with holmium laser lithotripsy, stone basketing and stent Consent for Procedure: I have explained the operation/procedure to the patient, including the risks, benefits, side effects, alternative therapies (including not receiving the proposed treatment or service), the likelihood of the patient achieving his/her goals, and potential recuperation problems for the procedure/sedation/analgesia, as well as any blood products, if indicated. I also explained to the patient the risks, benefits and side effects of the alternatives, as well as the risks related to not receiving the proposed procedure, care, treatment, or services. Past Medical History Past Medical History: Cancer Additional Past Medical History / Comment(s): dizziness-Hx. of vertigo, Hx. of L kidney stones. Currently R kidney stones. Skin cancer on R hip. History of Any Multi-Drug Resistant Organisms: None Reported Past Surgical History: Cholecystectomy, Orthopedic Surgery Additional Past Surgical History / Comment(s): Skin cancer removed from L hip. Foot surgery. Past Anesthesia/Blood Transfusion Reactions: Postoperative Nausea & Vomiting (PONV) Smoking Status: Current every day smoker - Past Family History Mother Family Medical History: No Reported History Sister(s) Family Medical History: Cancer Father Family Medical History: Cancer Medications and Allergies Home Medications Medication Instructions Recorded Confirmed Type Multivitamins, Thera [Multivitamin 1 tab PO DAILY 06/08/22 06/08/22 History (formulary)] Allergies Allergy/AdvReac Type Severity Reaction Status Date / Time Sulfa (Sulfonamide Allergy Unknown Verified 06/08/22 08:31 Antibiotics) Surgical - Exam - General no distress, moderate pain - ENT normal nares, normal mucosa - Respiratory normal expansion, normal respiratory effort - Abdomen Abdomen: soft, non tender Assessment and Plan Assessment: -OR for right-sided ureteroscopy with holmium laser lithotripsy, stone basketing and stent
[~2022-06-13 08:16] MED LIST changes: -DEXAMETHASONE SOD PHOSPHATE 4 MG/ML 1 ML VIAL IV PRN; -FAMOTIDINE 20 MG/2 ML VIAL IV PRN; +HYDROmorphone 0.5 MG/0.5 ML SYRINGE IVP PRN; -LIDOCAINE 1% (10MG/ML) FOR IV START INTRADERMA PRN; -MIDAZOLAM 2 MG/2 ML VIAL IV PRN; -ONDANSETRON 4 MG/2 ML VIAL IVP PRN
--- NOTE | 2022-06-13 08:43 | XR ---
EXAMINATION TYPE: XR KUB DATE OF EXAM: 06/13/2022 8:28 AM CLINICAL HISTORY: Right-sided kidney stones. TECHNIQUE: Single supine KUB image of the abdomen is obtained. COMPARISON: Prior abdominal x-ray October 30. FINDINGS: There is new 8 mm calculus projecting upper to midpole level medially at level of the right L2-L3 disc space. Smaller bilateral renal calculi are likely present. Scattered bilateral pelvic phl eboliths again seen. Overall nonobstructive bowel gas pattern. Dextroconvex scoliosis redemonstrated. IMPRESSION: As above.
[2022-06-13] MEDS ORDERED: LACTATED RINGERS 1,000 ML IV ONE ×2 (09:00→12:21)
[2022-06-13] MEDS ORDERED: NEOSTIGMINE 1 MG/ML 10 ML VIAL ONE (10:40)
[2022-06-13] MEDS ORDERED: MIDAZOLAM 2 MG/2 ML VIAL ONE (10:40)
[2022-06-13] MEDS ORDERED: LIDOCAINE 2% INJ 20 MG/ML (2 ML VIAL) ONE (10:40)
[2022-06-13] MEDS ORDERED: SUCCINYLCHOLINE CHLORIDE 200 MG/10 ML VIAL IV ONE (10:40)
[2022-06-13] MEDS ORDERED: GLYCOPYRROLATE 0.2 MG/ML 2 ML VIAL ONE (10:40)
[2022-06-13] MEDS ORDERED: ROCURONIUM 10 MG/ML (5 ML VIAL) IV ONE (10:40)
[2022-06-13] MEDS ORDERED: PROPOFOL 10 MG/ML 20 ML VIAL IV ONE (10:40)
[2022-06-13] MEDS ORDERED: fentaNYL (PF) 50 MCG/ML 2 ML AMP ONE (10:40)
--- NOTE | 2022-06-13 11:29 | FL ---
EXAMINATION TYPE: FL guidance operating room DATE OF EXAM: 06/13/2022 CLINICAL HISTORY: Kidney stone. TECHNIQUE: Fluoroscopy. COMPARISON: Same day abdominal x-ray FINDINGS: Fluoroscopic guidance was provided during 's cystoscopy and lithotripsy procedure performe d by Dr. Paredes. A total of 1 seconds of fluoroscopic time was utilized during the procedure and 1 s pot intraoperative image is acquired. Please refer to procedure note for further details. IMPRESSION: As Above.
[2022-06-13 11:30] VITALS: TEMP 97.1
--- NOTE | 2022-06-13 11:39 | P.OP ---
Date of Procedure: 06/13/22 Preoperative Diagnosis: Right renal stone Postoperative Diagnosis: Same Procedure(s) Performed: Cystoscopy, right ureteroscopy, holmium laser lithotripsy, stone basketing Implants: none Anesthesia: NELLIEA Surgeon: Hitesh Grullon Estimated Blood Loss (ml): 5 Pathology: other (right renal stone) Condition: stable Disposition: PACU Indications for Procedure: This is a 61 yo female with a history of a 8 mm right-sided renal pelvis stone. She symptomatic from her stone. Option of ureteroscopy with holmium laser vs ESWL was discussed with her in detail. Risk and benefit of each approach were discussed. She agreed to proceed with right-sided he renoscopy with holmium laser. Discussed risk which includes but not limited to bleeding, infection, injury to ureter. Discussed also risk from anesthesia. She understood all the risk and agreed to proceed with right-sided ureteroscopy with holmium laser lithotripsy, stone basketing and stent Operative Findings: large right sided renal pelvis stone Description of Procedure: Patient brought to the operating room, general anesthesia was induced. She was prepped and draped in sterile fashion a placement dorsal lithotomy position. Cystoscopy fitted with a 21-[place]ian sheath was inserted per urethra, cystoscopy was performed which showed no abnormality within the bladder. Attention was then carried to the right ureteral orifice which was intubated with a sensor wire. Next under fluoroscopy and 1113 Tun[place]ian access sheath was passed over the wire into the proximal ureter. Next the flexible the flexibile ureteroscope was inserted through the access sheath, renoscopy was performed which showed a large stone in the renal pelvis. Using the holmium laser the stone was fragmented into small fragments, sizable fragments were removed and sent for analysis. Repeat renoscopy showed no sizable fragments or injury to the kidney. Pullback ureteroscopy was performed showed no injury to the ureter or any ureteral stones. There was no ureteral edema, thus a stent was not placed The bladder was emptied at the end of the case. Patient tolerated the procedure well was taken to recovery in stable condition
[2022-06-13] MEDS ORDERED: KETOROLAC 15 MG/ML 1 ML VIAL IVP ONE (12:08)
[2022-06-13] MEDS ORDERED: ONDANSETRON 4 MG/2 ML VIAL IVP ONE (12:10)
[2022-06-13] MEDS ORDERED: diphenhydrAMINE 50 MG/ML 1 ML VIAL IVP ONE (12:19)
[2022-06-13 12:34] VITALS: RESP 18
[2022-06-13 13:11] VITALS: BP 129/86; PULSE 57
== END 2022-06-13 13:30 | disposition home or self-care (01) ==
LOC: OR 08:16
PROVIDERS: ATTEND Urology
DX: N20.0 Calculus of kidney (principal); F17.200 Nicotine dependence, unspecified, uncomplicated; K91.0 Vomiting following gastrointestinal surgery; R42 Dizziness and giddiness; Z90.49 Acquired absence of other specified parts of digestive tract; Z98.890 Other specified postprocedural states; Z85.828 Personal history of other malignant neoplasm of skin; Z88.1 Allergy status to other antibiotic agents; Z79.899 Other long term (current) drug therapy
CPT/HCPCS: 82365; 74018; 52353; C1769; J1200; J1100; J0690; J2405; J1885